=== PATIENT | male | born 1960 | race American Indian/Alaskan Native ===

== ENCOUNTER 2016-11-29 06:45 | Day surgery (SDC) | payer OTHER ==
[~2016-11-29] VITALS: Ht 165.1 cm; Wt 106.3 kg
[2016-11-29] MEDS ORDERED: CHOL2000 PO (07:22)
[2016-11-29] MEDS ORDERED: ALBU6.7H INH (07:22)
[2016-11-29] MEDS ORDERED: ASPI-496 PO (07:22)
[2016-11-29] MEDS ORDERED: LISI30TA4 PO (07:22)
[2016-11-29] MEDS ORDERED: TERA2CAP3 PO (07:22)
[2016-11-29] MEDS ORDERED: NIAC500T85 PO (07:22)
[2016-11-29] MEDS ORDERED: OMEP-110 PO (07:22)
[2016-11-29 08:17] LABS: ASPARTATE AMINO TRANSFERASE 25 U/L (15-37); BLOOD UREA NITROGEN 10 mg/dL (7-18)
[2016-11-29] MEDS ORDERED: OMNIPAQUE 350 MG/ML, 150 ML BOTTLE ONE (10:06)
[2016-11-29 10:26] VITALS: BP 117/75
[2016-11-29] MEDS ORDERED: CEFOTETAN PMX 1GM/50ML 50 ML IV ONE (10:30)
[2016-11-29] MEDS ORDERED: FENTANYL PF 250 MCG/5ML ONE (10:50)
[2016-11-29] MEDS ORDERED: BUPIVACAINE/PF-EPI 0.5% 1:200K ONE (11:21)
[2016-11-29] MEDS ORDERED: FENTANYL PF 100 MCG/2ML IV PRN (12:00)
[2016-11-29] MEDS ORDERED: PROMETHAZINE 25 MG/ML, 1ML IV PRN (12:00)
[2016-11-29] MEDS ORDERED: ALBUTEROL/IPRATROPIUM 2.5MG/0.5MG, 3 ML NPPB PRN (12:00)
[2016-11-29] MEDS ORDERED: OXYcodone 5 MG/5 ML ORAL.SOL UDC PO PRN (12:00)
[2016-11-29] MEDS ORDERED: ONDANSETRON 2MG/ML, 2ML IVPush PRN (12:00)
[2016-11-29] MEDS ORDERED: ACETAMINOPHEN 325 MG TABLET PO PRN (12:00)
[2016-11-29] MEDS ORDERED: MEPERIDINE/PF 25MG/0.5ML IVPush PRN (12:00)
[2016-11-29] MEDS ORDERED: HYDROmorphone 1 MG/ML, 1ML IV PRN (12:00)
[2016-11-29] MEDS ORDERED: LABETALOL 5MG/ML, 20ML IV PRN (12:00)
[2016-11-29] MEDS ORDERED: hydrALAzine 20 MG/ML, 1ML IV PRN (12:00)
[2016-11-29] MEDS ORDERED: KETOROLAC 30 MG/1 ML ONE (12:03)
[2016-11-29] MEDS ORDERED: CEFOTETAN 2 GM ONE (12:03)
[2016-11-29] MEDS ORDERED: PROPOFOL 10 MG/ML, 20ML ONE (12:03)
[2016-11-29] MEDS ORDERED: SUCCINYLCHOLINE 20 MG/ML, 10ML ONE (12:03)
[2016-11-29] MEDS ORDERED: DEXAMETHASONE 4 MG/ML, 1ML ONE (12:03)
[2016-11-29] MEDS ORDERED: ROCURONIUM 10 MG/ML ONE (12:03)
[2016-11-29] MEDS ORDERED: ONDANSETRON 2MG/ML, 2ML ONE (12:03)
[2016-11-29] MEDS ORDERED: OXYcodone 5 MG/5 ML ORAL.SOL UDC ONE (12:54)
[2016-11-29] MEDS ORDERED: ACETAMINOPHEN 325 MG/10.15 ML UDC ONE (12:55)
[2016-11-29] MEDS ORDERED: ACETAMINOPHEN 650 MG/20.3 ML UDC ONE (12:55)
[2016-11-29] MEDS ORDERED: FENTANYL PF 100 MCG/2ML ONE (13:45)
== END 2016-11-29 17:00 ==
LOC: ED 08:40 → OR 10:35 → EDIP 10:35 → UNDOADMOB 10:35 → OR 17:00
PROVIDERS: ATTEND Surgery
DX: K35.80 Unspecified acute appendicitis (principal)
CPT/HCPCS: 36415; 44970; 74020; 74177; 80053; 81003; 83605; 83690; 85025; 88304; 93005; 99285; J0330; J1100; J1885; J2405; J2704; J3010; Q9967; S0074

== ENCOUNTER 2017-08-04 13:29 | Emergency (ER) | payer OTHER ==
[~2017-08-04] VITALS: Ht 165.1 cm; Wt 108.6 kg
[~2017-08-04 13:29] MED LIST: ALBU6.7H INH; ASPI-496 PO; CHOL2000 PO; LISI30TA4 PO; NIAC500T85 PO; OMEP-110 PO; TERA2CAP3 PO
[2017-08-04] MEDS ORDERED: HYDROcodone/APAP 5/325 TABLET ONE (13:48)
[2017-08-04] MEDS ORDERED: HYDROcodone/APAP 5/325 TABLET PO ONE (14:00)
[2017-08-04 14:31] VITALS: BP 132/78
== END 2017-08-04 14:47 | disposition home or self-care (01) ==
LOC: ED 14:30
DX: S93.492A Sprain of other ligament of left ankle, initial encounter (principal); E11.9 Type 2 diabetes mellitus without complications; J45.909 Unspecified asthma, uncomplicated; I10 Essential (primary) hypertension; Y93.89 Activity, other specified; Y92.89 Other specified places as the place of occurrence of the external cause; Y99.8 Other external cause status; X58.XXXA Exposure to other specified factors, initial encounter
CPT/HCPCS: 29515; 99284